=== PATIENT | female | born 1995 | race Caucasian/White ===

== ENCOUNTER 2022-12-01 15:38 | Emergency (ER) | payer MEDICAID, SELFPAY ==
[2022-12-01 15:46] VITALS: BP 144/86; PULSE 117; RESP 20; TEMP 36.7; O2SAT 99; BMI 20.7
--- NOTE | 2022-12-01 16:30 | ED_ITS ---
Documented by User: ESTRELLA Bennett 12/03/22 06:59 HPI - Female Genitourinary General: Chief complaint: Urogenital-Female Stated complaint: about 5 weeks preg/ Passing bleeding alot Time Seen by Provider: 12/01/22 16:18 Source: patient Mode of arrival: ambulatory Limitations: no limitations History of Present Illness: Patient is a female at approximately 6 weeks gestation here for complaints of vaginal bleeding. She states spotting initially began 4 days ago. She noticed light pink blood with wiping for about 48 hours. She states yesterday bleeding started to look more like period blood and states today bleeding became heavier with clots. She states was confirmed at the [facility]. She states she is not having any pain. No vaginal discharge. She is monogamous with partner. MD elicited complaint: possible miscarriage Onset (ago): day(s) Vaginal discharge: none Vaginal bleeding: moderate and POC/tissue Exacerbating factors: none Relieving factors: none Associated symptoms: Reports no associated symptoms; Deny abdominal pain, headache(s), nausea or vaginal discharge Treatment prior to arrival: none Sexual activity: Yes Patient : Yes Date of Last Menstrual Period: 10/20/22 Review of Systems Const: Denies: fever(s), chills, body aches, fatigue or malaise Card: Denies: chest pain Resp: Denies: dyspnea GI: Denies: abdominal pain, nausea, vomiting or change in bowel habits : Reports: vaginal bleeding; Denies: flank pain, difficulty voiding, dysuria, urinary frequency, urinary urgency, urinary hesitancy, hematuria, genital lesions, genital pruritis, vaginal odor, vaginal discharge or pelvic pain Musc: Denies: neck pain, back pain, extremity pain or joint pain Skin/Breast: Denies: rash Neuro: Denies: headache(s), numbness in extremities, weakness in extremities, sensory changes or dizziness PFSH ED PFSH: Medical History No pertinent family history Surgical History No pertinent past surgical history Female Reproductive History: Date of last menstrual period: 10/20/22 Physical Exam Const: COMMON NORMALS: no acute distress, average body habitus, patient oriented x3, no limitations, healthy appearing, alert and well nourished GENERAL APPEARANCE: cooperative ORIENTATION/CONSCIOUSNESS: Yes awake, Yes oriented to person, Yes oriented to place and Yes oriented to time HENMT: COMMON NORMALS: normocephalic and atraumatic HEAD & SCALP: normal to inspection, normocephalic and atraumatic Resp: COMMON NORMALS: normal respiratory effort and clear to auscultation bilaterally AUSCULTATION: clear to auscultation bilaterally Cardio: COMMON NORMALS: regular rhythm RATE: tachycardic (mild) RHYTHM: regular rhythm GI: COMMON NORMALS: Normal to inspection, nondistended, normoactive bowel sounds present, Soft to palpation, non-tender and no masses PALPATION: Yes Soft to palpation : COMMON NORMALS: Yes no CVA tenderness BLADDER/KIDNEY EXAM: Yes no CVA tenderness EXTERNAL FEMALE EXAM: Yes normal appearance of the urethra SPECULUM EXAM - CERVIX: Yes Cervical os open and Yes Tissue present in the cervical os (clots/POC present) OB/EXTERNAL & SPECULUM: Cervical os open Back/Pelvis: COMMON NORMALS: no CVA tenderness Extremity: GENERAL: Yes normal exam except as noted Neuro: ABEL COMA SCALE: document GCS findings Abel coma scale eye opening: Spontaneous Moran coma scale verbal response: Orientated Abel coma scale motor response: Obey commands Moran coma scale total score: 15 COMMON NORMALS: patient oriented x3 and gait normal SENSORIUM/ORIENTATION: Yes alert, Yes oriented to person, Yes oriented to place and Yes oriented to time Skin: COMMON NORMALS: no rashes or lesions noted GENERAL SKIN EXAM: no rashes or lesions noted Course Vital Signs: Vital signs: Vital Signs Temperature 98.1 F 12/01/22 15:46 Pulse Rate 117 H 12/01/22 15:46 Respiratory Rate 20 H 12/01/22 15:46 Blood Pressure 144/86 12/01/22 15:46 Pulse Oximetry 97 12/01/22 18:31 Oxygen Delivery Me thod 12/01/22 18:31 MDM - Female Lab Data 12/01/22 16:29 12/01/22 16:29 Radiology Impressions Transvaginal US 12/01/22 16:55 IMPRESSION: 1. Small focus in the posterior right adnexa. It is uncertain whether this could represent the left ovary. There is no definite flow on Doppler imaging in the structure, which could be secondary to positioning. Recommend clinical correlation to rule out ovarian torsion. 2. Thickened endometrium with findings suggesting retained products of conception and hemorrhage in the endometrium. 3. Large, mildly complex cystic focus with homogeneous low level echoes and posterior acoustic enhancement in the right adnexa. Differential diagnosis includes a hemorrhagic cyst versus endometrioma versus a cystic ovarian neoplasm. Recommend clinical correlation. ADDENDUM: 12/01/22 [id number] THIS REPORT CONTAINS FINDINGS THAT MAY BE CRITICAL TO PATIENT CARE. The findings were verbally communicated via telephone conference with ESTRELLA Fenton at 6:32 PM HEALTHCARE CONSULTANT on 12/01/2022. The findings were acknowledged and understood. Laboratory Results WBC 11.8 10^3/uL (4.0-10.0) H 12/01/22 16: RBC 4.80 10^6/uL (4.1-5.3) 12/01/22 16: Hgb 11.3 g/dL (11.5-15.3) L 12/01/22 16: Hct 38.2 % (37.0-47.0) 12/01/22 16: MCV 79.6 fl (81-99) L 12/01/22 16: MCH 23.5 pg (28.0-34.0) L 12/01/22 16: MCHC 29.6 g/dL (30.0-36.0) L 12/01/22 16: RDW 13.7 % (12.1-15.1) 12/01/22 16: Plt Count 426 10^3/cmm (130-400) H 12/01/22 16: MPV 9.2 fL (7.4-10.4) 12/01/22 16: Neut % (Auto) 80.2 % 12/01/22 16: Lymph % (Auto) 13.8 % 12/01/22 16: [place] % (Auto) 5.0 % 12/01/22 16: Eos % (Auto) 0.3 % 12/01/22 16: Baso % (Auto) 0.3 % 12/01/22 16: Neut # (Auto) 9.48 10^3/uL (1.8-7.7) H 12/01/22 16: Lymph # (Auto) 1.6 10^3/uL (0.8-4.8) 12/01/22 16:29 [place] # (Auto) 0.6 10^3/uL (0.2-0.9) 12/01/22 16:29 Eos # (Auto) 0.0 10^3/uL (0.0-0.8) 12/01/22 16:29 Baso # (Auto) 0.0 10^3/uL (0.0-0.1) 12/01/22 16:29 Nucleated RBC % (auto) 0 % 12/01/22 16: Nucleated RBCs # 0.0 /100WBC 12/01/22 16:29 Sodium 139 mmol/L (136-145) 12/01/22 16:29 Potassium 3.6 mmol/L (3.5-5.1) 12/01/22 16:29 Chloride 103 mmol/L (98-107) 12/01/22 16: Carbon Dioxide 24 mmol/L (22-29) 12/01/22 16:29 Anion Gap 15.6 (5-19) 12/01/22 16:29 BUN 3 mg/dL (6-20) L 12/01/22 16:29 Creatinine 0.6 mg/dL (0.5-0.9) 12/01/22 16:29 GFR Calculation 121.8 mL/min (90-130) 12/01/22 16:29 Glucose 88 mg/dL (65-115) 12/01/22 16:29 Calculated Osmolality 284 mOsm/kg (285-295) L 12/01/22 16:29 Calcium 10.2 mg/dL (8.5-10.5) 12/01/22 16:29 Total Bilirubin 0.4 mg/dL (0.15-1.2) 12/01/22 16:29 AST 76 U/L (0-32) H 12/01/22 16:29 ALT 114 U/L (0-33) H 12/01/22 16:29 Alkaline Phosphatase 155 U/L (35-105) H 12/01/22 16:29 Total Protein 7.8 g/dL (6.6-8.7) 12/01/22 16:29 Albumin 4.9 g/dL (3.5-5.2) 02/27/23 16:29 Globulin 2.9 g/dL (1.3-4.6) 12/01/22 16:29 Ser , Semi-Qnt 9522.00 mIU/mL 12/01/22 16:29 Blood Type O Positive 12/01/22 16:29 Rho(D) Type Positive 12/01/22 16:29 Discharge Plan Discharge Patient Disposition: Home Clinical Impression: Miscarriage Condition: Stable Prescriptions: No Action fluoxetine 20 mg capsule 20 mg PO DAILY 28-800 mg-mcg Tablet 1 tab PO DAILY Discharge Orders: Discharge ED (Routine); Ordered 12/01/22 Ordered By: Celso aMher Referrals: Scar Moise FNP [Primary Care Provider] - Discharge Diet: Regular Discharge Activity: Limit activity as instructed Patient Instructions: Miscarriage (ED) Activity Restrictions/Additional Instructions: Follow-up with medical provider as directed. Call [facility] women's clinic tomorrow and set up an appointment with Dr. El for follow-up. Return to the ER if you are having worsening bleeding and bleeding through 2 heavy pads in an hour. Please read and understand discharge instructions. Thank you for choosing [facility] for your healthcare needs today. Please realize this is an emergency room and that we are providing you with a medical screening exam and this may not be complete and all inclusive of all the testing and or work up that you may need to determine your ailment or severity of your illness. It is very important that you follow up as instructed or that you return to the Emergency Department should you have concerns or if your condition changes or worsens in any way. Sign Out Sign Out Data: Patient Sign Out occurred on 12/01/22 at 17:09. Patient's care was discussed, and care was transferred from to ESTRELLA Barksdale. Coding Level of Care Code ED Press Hand for Chg Fwd Documented by User: ESTRELLA Barksdale 12/01/22 23:33 HPI - Female Genitourinary General: Chief complaint: Urogenital-Female Stated complaint: about 5 weeks preg/ Passing bleeding alot Time Seen by Provider: 12/01/22 16:18 [facility] ED PFSH: Medical History No pertinent family history Surgical History No pertinent past surgical history Physical Exam Neuro: ABEL COMA SCALE: document GCS findings Moran coma scale total score: 15 Course Consultations: Consultation #1: I contacted Dr. El the [employer] INSTRUCTOR doctor on-call told her about patient case. She recommended me giving patient 600 of Cytotec and she is going to come up to the ED department and evaluate patient and then determine dispo. Time: 18:50 Vital Signs: Vital signs: Vital Signs Temperature 98.1 F 12/01/22 15:46 Pulse Rate 117 H 12/01/22 15:46 Respiratory Rate 20 H 12/01/22 15:46 Blood Pressure 144/86 12/01/22 15:46 Pulse Oximetry 97 12/01/22 18:31 Oxygen Delivery Me thod 12/01/22 18:31 MDM - Female Medical Decision Making Patient is a female at approximately 6 weeks gestation here for complaints of vaginal bleeding. She states spotting initially began 4 days ago. Vitals are stable. hCG quant 9522. Rh+, hemoglobin 11.3 and white blood cell count 11.8. The rest of CBC and CMP were unremarkable. Ultrasound showed some po ssible retained products of conception. I contacted Dr. El the OB/Guynn specialist on-call and told her about patient case and reviewed the ultrasound with her. She recommended I give her a dose of Cytotec and she will come to the ED to evaluate patient. Dr. El to do pelvic and removed some products of conception from cervix and her bleeding improved. She felt the patient was stable to be discharged home and she can follow-up in clinic with Dr. El in a couple days. Strict return to ED precautions given. Patient understood and agreed with plan. Lab Data I reviewed the patient's lab results. 12/01/22 16:29 12/01/22 16:29 Radiology Impressions Transvaginal US 12/01/22 16:55 IMPRESSION: 1. Small focus in the posterior right adnexa. It is uncertain whether this could represent the left ovary. There is no definite flow on Doppler imaging in the structure, which could be secondary to positioning. Recommend clinical correlation to rule out ovarian torsion. 2. Thickened endometrium with findings suggesting retained products of conception and hemorrhage in the endometrium. 3. Large, mildly complex cystic focus with homogeneous low level echoes and posterior acoustic enhancement in the right adnexa. Differential diagnosis includes a hemorrhagic cyst versus endometrioma versus a cystic ovarian neoplasm. Recommend clinical correlation. ADDENDUM: 12/01/22 2008 THIS REPORT CONTAINS FINDINGS THAT MAY BE CRITICAL TO PATIENT CARE. The findings were verbally communicated via telephone conference with ESTRELLA Fenton at 6:32 PM HEALTHCARE CONSULTANT on 12/01/2022. The findings were acknowledged and understood. Laboratory Results WBC 11.8 10^3/uL (4.0-10.0) H 12/01/22 16: RBC 4.80 10^6/uL (4.1-5.3) 12/01/22 16: Hgb 11.3 g/dL (11.5-15.3) L 12/01/22 16: Hct 38.2 % (37.0-47.0) 12/01/22 16: MCV 79.6 fl (81-99) L 12/01/22 16: MCH 23.5 pg (28.0-34.0) L 12/01/22 16: MCHC 29.6 g/dL (30.0-36.0) L 12/01/22 16: RDW 13.7 % (12.1-15.1) 12/01/22 16: Plt Count 426 10^3/cmm (130-400) H 12/01/22 16: MPV 9.2 fL (7.4-10.4) 12/01/22 16: Neut % (Auto) 80.2 % 12/01/22 16: Lymph % (Auto) 13.8 % 12/01/22 16: [place] % (Auto) 5.0 % 12/01/22 16: Eos % (Auto) 0.3 % 12/01/22 16: Baso % (Auto) 0.3 % 12/01/22 16: Neut # (Auto) 9.48 10^3/uL (1.8-7.7) H 12/01/22 16:29 Lymph # (Auto) 1.6 10^3/uL (0.8-4.8) 12/01/22 16:29 [place] # (Auto) 0.6 10^3/uL (0.2-0.9) 12/01/22 16:29 Eos # (Auto) 0.0 10^3/uL (0.0-0.8) 12/01/22 16: Baso # (Auto) 0.0 10^3/uL (0.0-0.1) 12/01/22 16: Nucleated RBC % (auto) 0 % 12/01/22 16: Nucleated RBCs # 0.0 /100WBC 12/01/22 16:29 Sodium 139 mmol/L (136-145) 12/01/22 16:29 Potassium 3.6 mmol/L (3.5-5.1) 12/01/22 16: Chloride 103 mmol/L (98-107) 12/01/22 16: Carbon Dioxide 24 mmol/L (22-29) 12/01/22 16:29 Anion Gap 15.6 (5-19) 12/01/22 16:29 BUN 3 mg/dL (6-20) L 12/01/22 16:29 Creatinine 0.6 mg/dL (0.5-0.9) 12/01/22 16:29 GFR Calculation 121.8 mL/min (90-130) 12/01/22 16:29 Glucose 88 mg/dL (65-115) 12/01/22 16:29 Calculated Osmolality 284 mOsm/kg (285-295) L 12/01/22 16:29 Calcium 10.2 mg/dL (8.5-10.5) 12/01/22 16:29 Total Bilirubin 0.4 mg/dL (0.15-1.2) 12/01/22 16:29 AST 76 U/L (0-32) H 12/01/22 16:29 ALT 114 U/L (0-33) H 12/01/22 16:29 Alkaline Phosphatase 155 U/L (35-105) H 12/01/22 16:29 Total Protein 7.8 g/dL (6.6-8.7) 12/01/22 16:29 Albumin 4.9 g/dL (3.5-5.2) 12/01/22 16:29 Globulin 2.9 g/dL (1.3-4.6) 12/01/22 16:29 Ser , Semi-Qnt 9522.00 mIU/mL 12/01/22 16:29 Blood Type O Positive 12/01/22 16:29 Rho(D) Type Positive 12/01/22 16:29 Discharge Plan Discharge Patient Disposition: Home Clinical Impression: Miscarriage Condition: Stable Prescriptions: No Action fluoxetine 20 mg capsule 20 mg PO DAILY 28-800 mg-mcg Tablet 1 tab PO DAILY Discharge Orders: Discharge ED (Routine); Ordered 12/01/22 Ordered By: Celso Maher Referrals: Scar Moise FNP [Primary Care Provider] - Discharge Diet: Regular Discharge Activity: Limit activity as instructed Patient Instructions: Miscarriage (ED) Activity Restrictions/Additional Instructions: Follow-up with medical provider as directed. Call [facility] women's clinic tomorrow and set up an appointment with Dr. El for follow-up. Return to the ER if you are having worsening bleeding and bleeding through 2 heavy pads in an hour. Please read and understand discharge instructions. Thank you for choosing [facility] for your healthcare needs today. Please realize this is an emergency room and that we are providing you with a medical screening exam and this may not be complete and all inclusive of all the testing and or work up that you may need to determine your ailment or severity of your illness. It is very important that you follow up as instructed or that you return to the Emergency Department should you have concerns or if your condition changes or worsens in any way. Sign Out Sign Out Data: Patient Sign Out occurred on 12/01/22 at 17:09. Patient's care was discussed, and care was transferred from to ESTRELLA Barksdale. Coding Level of Care Code ED Press Hand for Matt Rodriguez
[2022-12-01 16:53] LABS: Basophils % 0.3 %; Eosinophils % 0.3 %; Hematocrit 38.2 % (37.0-47.0); Hemoglobin 11.3 g/dL (11.5-15.3); Lymphocytes # 1.6 10^3/uL (0.8-4.8); Lymphocytes % 13.8 %; Mean Corpuscular HGB Conc 29.6 g/dL (30.0-36.0); Mean Corpuscular Hemoglobin 23.5 pg (28.0-34.0); Mean Corpuscular Volume 79.6 fl (81-99); Mean Platelet Volume 9.2 fL (7.4-10.4); Monocytes # 0.6 10^3/uL (0.2-0.9); Neutrophils # 9.48 10^3/uL (1.8-7.7); Neutrophils % 80.2 %; Nucleated Red Blood Cells % 0 %; Platelet Count 426 10^3/cmm (130-400); Red Cell Distribution Width 13.7 % (12.1-15.1); White Blood Count 11.8 10^3/uL (4.0-10.0)
--- NOTE | 2022-12-01 16:55 | USR_ITS ---
PROCEDURE INFORMATION: Exam: US Pelvis, Transvaginal Exam date and time: 12/01/2022 5:18 PM Age: 26 years old Clinical indication: Other: Bleeding; Additional info: 6 wks /bleeding/miscarriage, poc/tissue in vaginal canal TECHNIQUE: Imaging protocol: Real-time transvaginal pelvic ultrasound with image documentation. Transvaginal imaging was used for better evaluation of the endometrium, adnexa, and/or cervix. COMPARISON: No relevant prior studies available. FINDINGS: Uterus: Thickened, heterogenous endometrium with complex, mobile material in the endometrium suggesting hemorrhage. The endometrium measures 2.0 cm. There is flow in areas of the endometrium on Doppler imaging, suspicious for retained products of conception. The uterus measures 10.2 x 5.1 x 5.0 cm. No focal myometrial abnormality. Right ovary/adnexa: Multiple subcentimeter follicles in the right ovary. The right ovary measures 2.6 x 3.2 x 1.8 cm. Normal arterial and venous waveforms on Doppler imaging. Large, mildly complex cystic focus with homogeneous low level echoes and posterior acoustic enhancement in the right adnexa measuring 8.2 x 7.1 x 8.0 cm. There is a 2nd, smaller focus in the posterior right adnexa measuring 2.8 x 1.5 x 2.5 cm. It is uncertain whether this could represent the left ovary. There is no definite flow on Doppler imaging in the structure, which could be secondary to positioning. Left ovary/adnexa: See Right ovary/adnexa finding. Intraperitoneal space: No free fluid in the pelvis. US/US transvaginal [id number] IMPRESSION: 1. Small focus in the posterior right adnexa. It is uncertain whether this could represent the left ovary. There is no definite flow on Doppler imaging in the structure, which could be secondary to positioning. Recommend clinical correlation to rule out ovarian torsion. 2. Thickened endometrium with findings suggesting retained products of conception and hemorrhage in the endometrium. 3. Large, mildly complex cystic focus with homogeneous low level echoes and posterior acoustic enhancement in the right adnexa. Differential diagnosis includes a hemorrhagic cyst versus endometrioma versus a cystic ovarian neoplasm. Recommend clinical correlation.
[2022-12-01 17:17] LABS: Alanine Aminotransferase 114 U/L (0-33); Albumin Level 4.9 g/dL (3.5-5.2); Alkaline Phosphatase 155 U/L (35-105); Anion Gap 15.6 (5-19); Aspartate Amino Transferase 76 U/L (0-32); Blood Urea Nitrogen 3 mg/dL (6-20); Calcium 10.2 mg/dL (8.5-10.5); Carbon Dioxide 24 mmol/L (22-29); Chloride 103 mmol/L (98-107); Creatinine Clr Calc Pharmacy 152.5271; Globulin 2.9 g/dL (1.3-4.6); Glomerular Filtration Rate 121.8 mL/min (90-130); Glucose 88 mg/dL (65-115); Osmolality Calculated 284 mOsm/kg (285-295); Potassium 3.6 mmol/L (3.5-5.1); Sodium 139 mmol/L (136-145); Total Bilirubin 0.4 mg/dL (0.15-1.2); Total Protein 7.8 g/dL (6.6-8.7)
[2022-12-01 18:31] VITALS: O2SAT 97
[2022-12-01] MEDS: miSOPROStol 200 mcg Tablet 600 MCG PO (19:08)
--- NOTE | 2022-12-01 20:08 | PM.CONSULT ---
Providers/Reason For Consult Consulting Physician/Specialty*: Dr El. form setter/driver Reason for Consult*: incomplete miscarriage Requesting Physician: Nika DE LA ROSA Primary Care Provider: Scar Moise History of Present Illness History of Present Illness Alice Feldman is a 26 year old female at about 6 weeks gestation, who presents to the ER for increased bleeding. She started spotting on . She continued to have mild bleeding until today, when the bleeding became heavier and she was soaking her pads with bright red Her H blood. An ultrasound showed blood and possible POC in the uterus. There was also a complex ovarian cyst present. Her HCG was about 9000 Review of Systems General: Reports: 10 or more systems reviewed and unremarkable except in HPI and below Medications/Allergies Home Medications Medication Instructions Recorded Confirmed Last Taken Type fluoxetine 20 mg capsule 20 mg PO DAILY 12/01/22 12/01/22 Unknown History vit no.133-ferrous 1 tab PO DAILY 12/01/22 12/01/22 Unknown History fumarate 28 mg-folic acid 800 mcg tablet () Allergies Allergy/AdvReac Type Severity Reaction Status Date / Time No Known Allergies Allergy Verified 12/01/22 15:56 PFSH Acute PFSH: Medical History No pertinent family history Surgical History No pertinent past surgical history Female Reproductive History: Date of last menstrual period: 10/20/22 Vitals/I&O/Wt Last Vital Signs Temp 98.1 F 12/01/22 15:46 Pulse 117 H 12/01/22 15:46 Resp 20 H 12/01/22 15:46 BP 144/86 12/01/22 15:46 Pulse Ox 97 12/01/22 18:31 O2 Del Method 12/01/22 18:31 Weight last 48 hrs Weight 145 lb Physical Exam Const: COMMON NORMALS: no acute distress, average body habitus, patient oriented x3, no limitations, healthy appearing, alert and well nourished GENERAL APPEARANCE: cooperative, comfortable, well kempt and well developed ORIENTATION/CONSCIOUSNESS: Yes awake, Yes oriented to person, Yes oriented to place and Yes oriented to time Resp: COMMON NORMALS: normal respiratory effort EFFORT & INSPECTION: Yes abnormal respiratory pattern GI: COMMON NORMALS: Soft to palpation and non-tender PALPATION: Yes Soft to palpation : COMMON NORMALS: Yes normal external appearance, Yes normal appearance of the vagina, Yes normal appearance of the cervix, Yes normal bimanual exam, Yes No adnexal tenderness and Yes no masses BIMANUAL EXAM - VAGINA & UTERUS: Yes normal bimanual exam OTHER: Speculum exam performed. A piece of tissue removed from the cervical os. This is consistent with POC. Bleeding has ceased. Extremity: COMMON NORMALS: no calf tenderness Neuro: COMMON NORMALS: patient oriented x3 SENSORIUM/ORIENTATION: Yes alert, Yes oriented to person, Yes oriented to place and Yes oriented to time Psych: COMMON NORMALS: mental status grossly normal, Normal thought process present, cooperative, normal affect and speech normal APPEARANCE: Yes well kempt SPEECH: Yes normal speech THOUGHT PROCESS: Normal thought process present Data 12/01/22 16:29 12/01/22 16:29 A&P Assessment and plan (1) Miscarriage: bleeding is light after removal of piece of tissue. strict bleeding precautions discussed with patient quant HCG on Thursday and see me in clinic Coding Level of Care Code Acute Code for Chg Fwd Diagnoses Miscarriage O03.9
--- NOTE | 2022-12-02 08:21 | DCPLANNER ---
Addendum entered by Briana Linares 12/16/22 17:52: Patient had follow up appointment with [facility] - patient did attend appointment. Addendum entered by Briana Linares 12/02/22 14:03: Patient has a follow up appointment scheduled for , December 11, 2022 at 9:[address] Garcia at [facility]. Clinic will call patient with appointment information. Original Note: [employer] account manager had message to schedule a follow up appointment for patient with [facility]. [employer] export account manager sent patients information to the front office staff at [facility]. Patients information will be printed and reviewed. Clinic will call patient with appointment information.
== END 2022-12-01 20:14 | disposition home or self-care (01) ==
PROVIDERS: Physician Assistant; Emergency Provider Physician Assistant; PCP Nurse Practitioner Family
DX: O03.9 Complete or unspecified spontaneous abortion without complication (principal)
CPT/HCPCS: 36415; 76830; 80053; 84702; 85025; 86900; 88305; 99284

== ENCOUNTER → 2022-12-03 09:40 | Outpatient (BNVA) | payer MEDICAID, SELFPAY | PROVIDERS: PCP Nurse Practitioner Family; Visit Provider Obstetrics & Gynecology | DX: O03.9 Complete or unspecified spontaneous abortion without complication (principal); Z3A.00 Weeks of gestation of pregnancy not specified | CPT/HCPCS: 84702 ==

== ENCOUNTER → 2022-12-08 14:00 | Outpatient (BNVA) | payer MEDICAID, SELFPAY | PROVIDERS: PCP Nurse Practitioner Family; Visit Provider Obstetrics & Gynecology | DX: O03.9 Complete or unspecified spontaneous abortion without complication (principal) | CPT/HCPCS: 84702 ==

== ENCOUNTER → 2022-12-23 09:30 | Outpatient (BNVA) | payer MEDICAID, SELFPAY | PROVIDERS: PCP Nurse Practitioner Family; Visit Provider Obstetrics & Gynecology | DX: O03.9 Complete or unspecified spontaneous abortion without complication (principal) | CPT/HCPCS: 84702 ==

== ENCOUNTER 2023-07-15 01:22 | Emergency (ER) | payer MEDICAID, SELFPAY ==
[2023-07-15 01:26] VITALS: BMI 20.7
[2023-07-15 01:36] VITALS: BP 147/96; PULSE 111; RESP 18; TEMP 36.6; O2SAT 99
--- NOTE | 2023-07-15 01:46 | W.ED.FEMALGU ---
HPI - Female Genitourinary General: Chief complaint: Vaginal Bleeding Stated complaint: Bleeding Vagina Time Seen by Provider: 07/15/23 01:23 History of Present Illness: Patient presents to the ER with complaints of heavy vaginal bleeding. Patient says she began spotting about 3 days ago and then just started bleeding very heavily with clots around 8 PM tonight. Patient has had to change pads approximately 5-6 times since then. Patient did have a normal period that ended on 07 10. Patient had a miscarriage in November is the only time that she is previously bled this heavy. Patient's not complaining of any abdominal pain or cramping. Date of Last Menstrual Period: 07/10/23 Review of Systems General: Reports: 10 or more systems reviewed and unremarkable except in HPI and below PFSH ED PFSH: Medical History No pertinent family history Surgical History No pertinent past surgical history Family History Denies family history of Colon cancer Ovarian cancer Diabetes Heart disease Hypercholesteremia Breast cancer Hypertension Uterine cancer Thyroid disease Stroke Female Reproductive History: Date of last menstrual period: 07/10/23 Physical Exam Const: COMMON NORMALS: no acute distress, average body habitus, patient oriented x3, no limitations, healthy appearing, alert and well nourished HENMT: COMMON NORMALS: normocephalic, hearing grossly normal bilaterally, external ears normal, Normal external nose present, moist oral mucous membranes and oropharynx normal HEAD & SCALP: normocephalic NOSE: Normal external nose present EXTERNAL EAR: Yes external ears normal Eye: COMMON NORMALS: Equal, round and reactive pupils present, EOMs intact bilaterally, conjunctivae normal and no scleral icterus CONJUNCTIVA: Yes conjunctivae normal PUPIL: Yes Equal, round and reactive pupils present Neck/C-Spine: COMMON NORMALS: full ROM, no lymphadenopathy, supple, no meningeal signs, no JVD and Thyroid normal THYROID: Thyroid normal Resp: COMMON NORMALS: normal respiratory effort, No retractions, No use of accessory muscles and clear to auscultation bilaterally AUSCULTATION: clear to auscultation bilaterally Cardio: COMMON NORMALS: no JVD, regular rate, regular rhythm, S1 normal heart sound present, S2 normal heart sound present, No gallops present (Cardio), No clicks present (Cardio), No murmurs present (Cardio) and No rub (Cardio) RATE: regular rate RHYTHM: regular rhythm HEART SOUNDS: S1 normal heart sound present and S2 normal heart sound present GI: COMMON NORMALS: Normal to inspection, nondistended, normoactive bowel sounds present, Soft to palpation, non-tender, No hepatosplenomegaly present and no masses PALPATION: Yes Soft to palpation and Yes No hepatosplenomegaly present Neuro: COMMON NORMALS: patient oriented x3 SENSORIUM/ORIENTATION: Yes alert MENINGEAL SIGNS: Yes no meningeal signs Course Vital Signs: Vital signs: Vital Signs Temperature 97.9 F 07/15/23 01:36 Pulse Rate 114 H 07/15/23 01:51 Respiratory Rate 16 07/15/23 01:51 Blood Pressure 147/96 07/15/23 01:51 Pulse Oximetry 99 07/15/23 01:51 Oxygen Delivery Me thod Room Air 07/15/23 01:36 MDM - Female Medical Decision Making Patient presented to the ER with complaints of heavy vaginal bleeding. Lab work was obtained which showed the patient is mildly anemic with a hemoglobin of 10.0 her hCG was negative and metabolic panel is negative. Patient will be referred back to her PCP and/or EXTENSION COURSE COORDINATOR for further evaluation and treatment. Differential Diagnosis Unlikely abdominal pain, acute appendicitis, calculus of kidney, constipation, diverticulitis, endometriosis, gastroenteritis, pancreatitis or small bowel obstruction Medical Records I reviewed the patient's medical records. Lab Data I reviewed the patient's lab results. 07/15/23 02:03 07/15/23 02:03 Laboratory Results WBC 11.10 10^3/uL (3.29-11.43) 07/15/23 02:03 RBC 4.26 10^6/uL (3.85-5.65) 07/15/23 02:03 Hgb 10.00 g/dL (11.27-16.99) L 07/15/23 02:03 Hct 33.9 % (36-47) L 07/15/23 02:03 MCV 79.6 fl (85-98) L 07/15/23 02:03 MCH 23.5 pg (27-33) L 07/15/23 02:03 MCHC 29.5 g/dL (30-55) L 07/15/23 02:03 RDW 14.2 % (12.1-15.1) 07/15/23 02:03 Plt Count 432 10^3/cmm (157-399) H 07/15/23 02:03 MPV 9.2 fL (7.4-10.4) 07/15/23 02:03 Neut % (Auto) 71.5 % 07/15/23 02:03 Lymph % (Auto) 20.1 % 07/15/23 02:03 [place] % (Auto) 7.1 % 07/15/23 02:03 Eos % (Auto) 0.7 % 07/15/23 02:03 Baso % (Auto) 0.3 % 07/15/23 02:03 Neut # (Auto) 7.94 10^3/uL (1.8-7.7) H 07/15/23 02:03 Lymph # (Auto) 2.2 10^3/uL (0.8-4.8) 07/15/23 02:03 [place] # (Auto) 0.8 10^3/uL (0.2-0.9) 07/15/23 02:03 Eos # (Auto) 0.1 10^3/uL (0.0-0.8) 07/15/23 02:03 Baso # (Auto) 0.0 10^3/uL (0.0-0.1) 07/15/23 02:03 Nucleated RBC % (auto) 0 % 07/15/23 02:03 Nucleated RBCs # 0.0 /100WBC 07/15/23 02:03 Sodium 140 mmol/L (136-145) 07/15/23 02:03 Chloride 104 mmol/L (98-107) 07/15/23 02:03 Carbon Dioxide 27 mmol/L (22-29) 07/15/23 02:03 Anion Gap 12.3 (5-19) 07/15/23 02:03 Creatinine 0.8 mg/dL (0.5-0.9) 07/15/23 02:03 Glucose 103 mg/dL (65-115) 07/15/23 02:03 Calculated Osmolality 288 mOsm/kg (285-295) 07/15/23 02:03 Calcium 9.5 mg/dL (8.5-10.5) 07/15/23 02:03 Total Bilirubin 0.3 mg/dL (0.15-1.2) 07/15/23 02:03 AST 28 U/L (0-32) 07/15/23 02:03 ALT 25 U/L (0-33) 07/15/23 02:03 Total Protein 7.3 g/dL (6.6-8.7) 07/15/23 02:03 Albumin 4.6 g/dL (3.5-5.2) 07/15/23 02:03 Globulin 2.7 g/dL (1.3-4.6) 07/15/23 02:03 HCG, Qual Negative (Negative) 07/15/23 02:03 No radiology studies performed this visit Discharge Plan Discharge Patient Disposition: Home Clinical Impression: Vaginal bleeding Condition: Stable Prescriptions: No Action fluoxetine 20 mg capsule 20 mg PO DAILY Discharge Orders: Discharge ED (Routine); Ordered 07/15/23 Ordered By: Joe Guerrero Patient Instructions: Abnormal (Dysfunctional) Uterine Bleeding (ED) Activity Restrictions/Additional Instructions: Please follow-up with your EXTENSION COURSE COORDINATOR and/or primary care physician in the next 7 days for further evaluation and treatment. If he gets symptomatic such as lightheadedness dizziness or syncope please return to the ER for further evaluation. Coding Level of Care Code ED [employer] for Matt [employer]
[2023-07-15 01:51] VITALS: BP 147/96; PULSE 114; RESP 16; O2SAT 99
[2023-07-15 02:07] LABS: Basophils % 0.3 %; Eosinophils # 0.1 10^3/uL (0.0-0.8); Eosinophils % 0.7 %; Hematocrit 33.9 % (36-47); Lymphocytes # 2.2 10^3/uL (0.8-4.8); Lymphocytes % 20.1 %; Mean Corpuscular HGB Conc 29.5 g/dL (30-55); Mean Corpuscular Hemoglobin 23.5 pg (27-33); Mean Corpuscular Volume 79.6 fl (85-98); Mean Platelet Volume 9.2 fL (7.4-10.4); Monocytes # 0.8 10^3/uL (0.2-0.9); Monocytes % 7.1 %; Neutrophils # 7.94 10^3/uL (1.8-7.7); Neutrophils % 71.5 %; Nucleated Red Blood Cells % 0 %; Platelet Count 432 10^3/cmm (157-399); Red Blood Count 4.26 10^6/uL (3.85-5.65); Red Cell Distribution Width 14.2 % (12.1-15.1)
[2023-07-15 02:19] LABS: HCG, Serum Qual Negative (Negative)
[2023-07-15 02:25] LABS: Alanine Aminotransferase 25 U/L (0-33); Albumin Level 4.6 g/dL (3.5-5.2); Alkaline Phosphatase 106 U/L (35-105); Anion Gap 12.3 (5-19); Aspartate Amino Transferase 28 U/L (0-32); Blood Urea Nitrogen 5 mg/dL (6-20); Calcium 9.5 mg/dL (8.5-10.5); Carbon Dioxide 27 mmol/L (22-29); Chloride 104 mmol/L (98-107); Globulin 2.7 g/dL (1.3-4.6); Glomerular Filtration Rate 86.7 mL/min (90-130); Glucose 103 mg/dL (65-115); Osmolality Calculated 288 mOsm/kg (285-295); Potassium 3.3 mmol/L (3.5-5.1); Sodium 140 mmol/L (136-145); Total Bilirubin 0.3 mg/dL (0.15-1.2); Total Protein 7.3 g/dL (6.6-8.7)
[2023-07-15 02:37] VITALS: BP 147/96; PULSE 114; RESP 16; TEMP 36.6; O2SAT 99
== END 2023-07-15 02:38 | disposition home or self-care (01) ==
PROVIDERS: Emergency Provider Emergency Medicine
DX: N93.9 Abnormal uterine and vaginal bleeding, unspecified (principal)
CPT/HCPCS: 80053; 84703; 85025; 99283

== ENCOUNTER → 2023-07-16 13:50 | Outpatient (BNVA) | payer MEDICAID, SELFPAY | PROVIDERS: Visit Provider Nurse Practitioner Women's Health | DX: N93.9 Abnormal uterine and vaginal bleeding, unspecified (principal); D64.9 Anemia, unspecified | CPT/HCPCS: 84443 ==

== ENCOUNTER → 2023-07-21 08:42 | Outpatient (BNVA) | payer MEDICAID, SELFPAY | PROVIDERS: Visit Provider Nurse Practitioner Women's Health | DX: N93.9 Abnormal uterine and vaginal bleeding, unspecified (principal); N83.202 Unspecified ovarian cyst, left side; N83.201 Unspecified ovarian cyst, right side | CPT/HCPCS: 76830 ==

== ENCOUNTER 2023-11-09 16:54 | Outpatient (CLI) | payer MEDICAID, SELFPAY ==
--- NOTE | 2023-11-09 | USR_ITS ---
PROCEDURE INFORMATION: Exam: US Pelvis, Transvaginal Exam date and time: 11/09/2023 5:19 PM Age: 27 years old Clinical indication: Condition or disease; Ovarian conditions; Type of cyst not specified; Additional info: Possible ov cysts LABS AND CLINICAL REPORTS: Last menstrual period start date: Unknown TECHNIQUE: Imaging protocol: Real-time transvaginal pelvic ultrasound with image documentation. Transvaginal imaging was used for better evaluation of the endometrium, adnexa, and/or cervix. COMPARISON: US transvaginal [id number] 07/21/2023 8:58 AM FINDINGS: Uterus: The uterus measures 9.3 x 3.6 x 6.5 cm. No myometrial abnormality. 6 mm nabothian cyst in the cervix. Endometrium is mildly thickened measuring 1.6 cm. Right ovary/adnexa: The right ovary is enlarged. The right ovary has mildly decreased in size and now measures 9.5 x 4.6 x 6.8 cm with a volume of 155.4 mL. Right ovary previously measured 10.1 x 5.3 x 7.7 cm. Multiple subcentimeter follicles in the right ovary. 3 cystic foci in the right ovary. The largest focus is overall stable in size measuring 5.9 x 4.1 x 6.1 cm. This has diffuse internal homogeneous echoes in the fluid component. A smaller, hyperechoic area along the periphery of the cystic component measures 1.0 x 1.6 cm, this is also stable. There is a calcified area measuring 9 mm in the right ovary as well, question if this largest focus could represent an ovarian dermoid. A 2nd cystic focus in the right ovary has decreased in size and now measures 1.2 x 1.6 x 1.4 cm. This may represent a resolving hemorrhagic cyst. A new cystic focus in the right ovary measuring 1.2 x 1.4 cm. This could represent a dominant follicle. Left ovary/adnexa: The left ovary is not definitely visualized. Intraperitoneal space: No free fluid in the pelvis. US/US transvaginal [id number] IMPRESSION: 1. Endometrium is mildly thickened measuring 1.6 cm. 2. The right ovary is enlarged, however has mildly decreased in size. 3. 3 cystic foci in the right ovary. The largest focus is overall stable in size. This has diffuse internal homogeneous echoes in the fluid component. A smaller, hyperechoic area along the periphery of the cystic component measures 1.0 x 1.6 cm, this is also stable. There is a calcified area measuring 9 mm in the right ovary as well, question if this largest focus could represent an ovarian dermoid. 4. A 2nd cystic focus in the right ovary has decreased in size, this may represent a resolving hemorrhagic cyst. 5. A new cystic focus in the right ovary may represent a dominant follicle. 6. The left ovary is not definitely visualized.
== END 2023-11-09 16:55 | disposition home or self-care (01) ==
LOC: RAD 16:54
PROVIDERS: Visit Provider Obstetrics & Gynecology
DX: N83.201 Unspecified ovarian cyst, right side (principal)
CPT/HCPCS: 76830